=== PATIENT | male | born 1935 | race Caucasian/White ===

== ENCOUNTER 2017-11-10 09:42 | Emergency (ER) | payer OTHER ==
[~2017-11-10] VITALS: Ht 180.3 cm; Wt 104.5 kg
[~2017-11-10 09:42] MED LIST: FINASTERIDE5 MG PO; HYTRIN2 MG PO
[2017-11-10 11:30] VITALS: BP 137/92
== END 2017-11-10 11:31 | disposition home or self-care (01) ==
LOC: EME 09:42
DX: S53.402A Unspecified sprain of left elbow, initial encounter (principal); S09.90XA Unspecified injury of head, initial encounter; W18.30XA Fall on same level, unspecified, initial encounter; Y92.512 Supermarket, store or market as the place of occurrence of the external cause; Z87.891 Personal history of nicotine dependence; Z88.8 Allergy status to other drugs, medicaments and biological substances
CPT/HCPCS: 70450; 73080; 99281; 99284